=== PATIENT | male | born 1970 | race Caucasian/White ===

== ENCOUNTER 2021-11-23 21:06 | Emergency (ER) | payer OTHER ==
[~2021-11-23] VITALS: Ht 175.2 cm; Wt 62.6 kg
[~2021-11-23 21:06] MED LIST: 'CLONIDINE0.1 MG PO; SUBOXONE 8 MG-1 EACH SL; VISTARIL25 M2 PO; ZOFRAN4 MG PO
[2021-11-23 21:40] LABS: MEAN CELL VOLUME 108.4 fl (80.0-94.0); MEAN CORPUSCULAR HGB CONC 34.2 g/dl (33.0-37.0); MEAN PLATELET VOLUME 9.8 fl (9.6-12.3); PLATELET COUNT AUTOMATED 71 10*3/uL (130-400); RED BLOOD COUNT 3.32 10*6/uL (4.50-5.90); RED CELL DISTRI WIDTH 14.8 % (0-14.5); WHITE BLOOD COUNT 4.8 10*3/uL (4.8-10.8)
[2021-11-23 21:41] LABS: MANUAL DIFF REFLEX YES
[2021-11-23 21:49] LABS: ALKALINE PHOSPHATASE 62 U/L (45-117); BUN 10 mg/dl (7-24); CHLORIDE 112 mmol/L (98-107); CREATININE 0.66 mg/dL (0.70-1.30); POTASSIUM 3.8 mmol/L (3.5-5.1); SGOT/AST 72 IU/L (3-35); SGPT/ALT 38 U/L (12-78); SODIUM 142 mmol/L (136-145); TOTAL PROTEIN 7.4 gm/dL (6.4-8.2)
[2021-11-23 21:50] LABS: CPK 219 U/L (39-308)
[2021-11-23 22:03] LABS: BURR CELLS FEW; PLATELET SUFFICIENCY LOW (NORMAL); TOTAL CELLS COUNTED 100 #CELLS
[2021-11-23 22:28] LABS: BACTERIA 1+; BILIRUBIN 2+ (Negative); BLOOD Negative (Negative); CALCIUM OXALATE CRYSTALS 1+; CLARITY Clear (Clear); COLOR Orange (Yellow); GLUCOSE Negative (Negative); KETONE Trace (Negative); LEUKO ESTERASE Trace (Negative); MUCOUS 2+; NITRITE Positive (Negative); SPECIFIC GRAVITY >= 1.030 (1.001-1.030)
== END 2021-11-23 23:22 | disposition home or self-care (01) ==
LOC: ED 21:06
PROVIDERS: Internal Medicine
DX: D64.9 Anemia, unspecified (principal); F10.929 Alcohol use, unspecified with intoxication, unspecified; Y90.9 Presence of alcohol in blood, level not specified; E44.0 Moderate protein-calorie malnutrition; R79.89 Other specified abnormal findings of blood chemistry

== ENCOUNTER 2021-12-25 18:34 | Emergency (ER) | payer OTHER ==
[~2021-12-25] VITALS: Ht 175.2 cm; Wt 71.2 kg
[2021-12-25 19:21] LABS: BASO % 0.4 % (0.0-1.0); EOS % 0.9 % (1.0-4.0); HEMATOCRIT 33.8 % (42.0-52.0); LYMPH # 1.3 10*3/uL (1.3-4.4); LYMPH % 29.2 % (27.0-41.0); MEAN CELL VOLUME 104.6 fl (80.0-94.0); MEAN CORPUSCULAR HGB 36.5 pg (27.0-31.0); MEAN CORPUSCULAR HGB CONC 34.9 g/dl (33.0-37.0); MEAN PLATELET VOLUME 9.2 fl (9.6-12.3); MONO # 0.4 10*3/uL (0.1-1.0); MONO % 9.8 % (3.0-9.0); NEUT # 2.7 10*3/uL (2.3-7.9); NEUT % 59.5 % (47.0-73.0); PLATELET COUNT AUTOMATED 72 10*3/uL (130-400); RED BLOOD COUNT 3.23 10*6/uL (4.50-5.90); RED CELL DISTRI WIDTH 14.4 % (0-14.5); WHITE BLOOD COUNT 4.5 10*3/uL (4.8-10.8)
[2021-12-25 19:41] LABS: INTERNATIONAL NORM RATIO 1.4 (2.0-3.5)
[2021-12-25 19:42] LABS: ALKALINE PHOSPHATASE 79 U/L (45-117); BUN 4 mg/dl (7-24); CHLORIDE 117 mmol/L (98-107); CREATININE 0.59 mg/dL (0.70-1.30); LIPASE 215 U/L (73-393); POTASSIUM 2.9 mmol/L (3.5-5.1); SGOT/AST 77 IU/L (3-35); SGPT/ALT 37 U/L (12-78); SODIUM 147 mmol/L (136-145); TOTAL PROTEIN 6.9 gm/dL (6.4-8.2)
[2021-12-25] MEDS ORDERED: K-TAB20 MEQ PO (21:28)
== END 2021-12-25 21:33 ==
LOC: ED 18:34
PROVIDERS: Physician Assistant
DX: G89.29 Other chronic pain (principal); R10.9 Unspecified abdominal pain; F17.200 Nicotine dependence, unspecified, uncomplicated

== ENCOUNTER 2022-09-15 17:43 | Emergency (ER) | payer OTHER ==
[~2022-09-15] VITALS: Ht 170.1 cm; Wt 86.2 kg
[~2022-09-15 17:43] MED LIST changes: +K-TAB20 MEQ PO
[2022-09-15 18:27] LABS: MEAN CORPUSCULAR HGB 26.4 pg (27.0-31.0); MEAN CORPUSCULAR HGB CONC 27.2 g/dl (33.0-37.0); MEAN PLATELET VOLUME 9.3 fl (9.6-12.3); PLATELET COUNT AUTOMATED 188 10*3/uL (130-400); RED BLOOD COUNT 1.97 10*6/uL (4.50-5.90); RED CELL DISTRI WIDTH 19.2 % (0-14.5); WHITE BLOOD COUNT 8.2 10*3/uL (4.8-10.8)
[2022-09-15 18:33] LABS: HEMATOCRIT 19.1 % (42.0-52.0); MANUAL DIFF REFLEX YES
[2022-09-15 18:42] LABS: ALKALINE PHOSPHATASE 32 U/L (46-116); BUN 18 mg/dl (9-23); CHLORIDE 107 mmol/L (98-107); LIPASE 35 U/L (12-53); POTASSIUM 3.3 mmol/L (3.4-5.1); SGPT/ALT 13 U/L (10-49); TOTAL PROTEIN 5.8 gm/dL (6.0-8.0)
[2022-09-15 18:45] VITALS: BP 106/79
[2022-09-15 18:45] LABS: ACT PARTIAL THROMBO TIME 26.2 SECONDS (20.0-32.1); INTERNATIONAL NORM RATIO 1.6 (2.0-3.5)
[2022-09-15 19:07] VITALS: BP 124/82
[2022-09-15 19:08] LABS: BURR CELLS FEW; PLATELET SUFFICIENCY NORMAL (NORMAL); POLYCHROMASIA SLIGHT; TOTAL CELLS COUNTED 100 #CELLS
== END 2022-09-15 20:11 | disposition short-term general hospital (02) ==
LOC: ED 17:43
PROVIDERS: Nurse Practitioner Family
DX: K92.2 Gastrointestinal hemorrhage, unspecified (principal); K70.30 Alcoholic cirrhosis of liver without ascites; E87.6 Hypokalemia; E87.20 Acidosis, unspecified

== ENCOUNTER 2022-10-28 09:24 | Emergency (ER) | payer OTHER ==
[~2022-10-28] VITALS: Ht 175.2 cm; Wt 61.2 kg
[2022-10-28 09:30] VITALS: BP 141/88
[2022-10-28 10:00] LABS: BASO % 0.3 % (0.0-1.0); EOS % 0.5 % (1.0-4.0); HEMATOCRIT 34.9 % (42.0-52.0); LYMPH # 0.7 10*3/uL (1.3-4.4); LYMPH % 11.7 % (27.0-41.0); MEAN CELL VOLUME 93.3 fl (80.0-94.0); MEAN CORPUSCULAR HGB 31.3 pg (27.0-31.0); MEAN CORPUSCULAR HGB CONC 33.5 g/dl (33.0-37.0); MEAN PLATELET VOLUME 8.2 fl (9.6-12.3); MONO # 0.2 10*3/uL (0.1-1.0); MONO % 4.1 % (3.0-9.0); NEUT # 4.8 10*3/uL (2.3-7.9); NEUT % 83.1 % (47.0-73.0); PLATELET COUNT AUTOMATED 201 10*3/uL (130-400); RED BLOOD COUNT 3.74 10*6/uL (4.50-5.90); RED CELL DISTRI WIDTH 18.9 % (0-14.5); WHITE BLOOD COUNT 5.8 10*3/uL (4.8-10.8)
[2022-10-28 10:11] LABS: ACT PARTIAL THROMBO TIME 27.2 SECONDS (20.0-32.1); INTERNATIONAL NORM RATIO 1.3 (2.0-3.5)
[2022-10-28 10:24] LABS: ALKALINE PHOSPHATASE 51 U/L (46-116); BUN 11 mg/dl (9-23); CHLORIDE 106 mmol/L (98-107); LIPASE 32 U/L (12-53); POTASSIUM 3.1 mmol/L (3.4-5.1); SGPT/ALT 25 U/L (10-49); TOTAL PROTEIN 7.7 gm/dL (6.0-8.0)
[2022-10-28 11:02] VITALS: BP 122/88
[2022-10-28] MEDS ORDERED: OMEPRAZOLE10 MG PO (12:24)
[2022-10-28] MEDS ORDERED: ALDACTONE25 MG PO (12:24)
[2022-10-28] MEDS ORDERED: CARVEDILOL3.125 MG PO (12:25)
[2022-10-28] MEDS ORDERED: FUROSEMIDE20 M1 PO (12:26)
[2022-10-28] MEDS ORDERED: SENNA8.6 MG PO (12:26)
[2022-10-28] MEDS ORDERED: MIRALAX119 GM PO (12:30)
[2022-10-28 16:37] VITALS: BP 133/90
[2022-10-28 17:58] LABS: BASO % 0.2 % (0.0-1.0); EOS % 0.7 % (1.0-4.0); HEMATOCRIT 32.8 % (42.0-52.0); LYMPH # 0.8 10*3/uL (1.3-4.4); LYMPH % 12.3 % (27.0-41.0); MEAN CELL VOLUME 95.1 fl (80.0-94.0); MEAN CORPUSCULAR HGB CONC 32.6 g/dl (33.0-37.0); MEAN PLATELET VOLUME 8.4 fl (9.6-12.3); MONO # 0.4 10*3/uL (0.1-1.0); MONO % 6.4 % (3.0-9.0); NEUT # 4.9 10*3/uL (2.3-7.9); NEUT % 80.1 % (47.0-73.0); PLATELET COUNT AUTOMATED 160 10*3/uL (130-400); RED BLOOD COUNT 3.45 10*6/uL (4.50-5.90); RED CELL DISTRI WIDTH 19.2 % (0-14.5); WHITE BLOOD COUNT 6.1 10*3/uL (4.8-10.8)
[2022-10-28 19:10] VITALS: BP 127/76
== END 2022-10-28 20:56 | disposition short-term general hospital (02) ==
LOC: ED 09:24 → EDHOLD 11:50 → ED 11:50 → EDHOLD 12:13 → ED 20:56
PROVIDERS: Emergency Medicine
DX: K92.2 Gastrointestinal hemorrhage, unspecified (principal); K74.60 Unspecified cirrhosis of liver; Z79.899 Other long term (current) drug therapy

== ENCOUNTER → 2024-04-25 | Outpatient (CLI) | payer MEDICAID ==
[~2024-04-25] MED LIST changes: +ALDACTONE25 MG PO; +CARVEDILOL3.125 MG PO; +FUROSEMIDE20 M1 PO; +MIRALAX119 GM PO; +OMEPRAZOLE10 MG PO; +SENNA8.6 MG PO
[2024-04-25 10:31] LABS: BASO % 0.7 % (0.0-1.0); EOS # 0.3 10*3/uL (0.0-0.4); EOS % 4.7 % (1.0-4.0); HEMATOCRIT 38.5 % (42.0-52.0); MEAN CELL VOLUME 98.2 fl (80.0-94.0); MEAN CORPUSCULAR HGB 32.1 pg (27.0-31.0); MEAN CORPUSCULAR HGB CONC 32.7 g/dl (33.0-37.0); MEAN PLATELET VOLUME 9.1 fl (9.6-12.3); MONO # 0.6 10*3/uL (0.1-1.0); MONO % 10.3 % (3.0-9.0); NEUT % 52.9 % (47.0-73.0); PLATELET COUNT AUTOMATED 162 10*3/uL (130-400); RED BLOOD COUNT 3.92 10*6/uL (4.50-5.90); RED CELL DISTRI WIDTH 14.8 % (0-14.5); WHITE BLOOD COUNT 5.8 10*3/uL (4.8-10.8)
[2024-04-25 10:57] LABS: ALKALINE PHOSPHATASE 83 U/L (46-116); BUN 13 mg/dl (9-23); CHLORIDE 109 mmol/L (98-107); CHOLESTEROL 141 mg/dL (<200); GAMMA GLUTAMYL TRANSPEPTIDASE 49 U/L (0-73); LDL CHOLESTEROL 83 mg/dL (9-159); POTASSIUM 3.7 mmol/L (3.4-5.1); SGPT/ALT 39 U/L (5-49); TOTAL PROTEIN 7.6 gm/dL (6.0-8.0); TRIGLYCERIDES 54 mg/dl (<150)
== END | disposition home or self-care (01) ==
LOC: LAB 10:10
PROVIDERS: ATTEND Nurse Practitioner Primary Care
DX: D69.6 Thrombocytopenia, unspecified (principal); B18.2 Chronic viral hepatitis C; R73.03 Prediabetes

== ENCOUNTER → 2024-05-03 | Outpatient (CLI) | payer MEDICAID ==
[~2024-05-03] MED LIST changes: +IOHEXOL 300 MG/ML 100 ML VIAL IV ONE; +SODIUM CHLORIDE 0.9% 10 ML SYR IV SCH
== END | disposition home or self-care (01) ==
LOC: CT 00:22
PROVIDERS: ATTEND Nurse Practitioner Primary Care
DX: N13.2 Hydronephrosis with renal and ureteral calculous obstruction (principal); K80.20 Calculus of gallbladder without cholecystitis without obstruction; K57.30 Diverticulosis of large intestine without perforation or abscess without bleeding; Q63.1 Lobulated, fused and horseshoe kidney; R18.8 Other ascites; R10.84 Generalized abdominal pain; M54.9 Dorsalgia, unspecified

== ENCOUNTER 2024-10-09 07:11 | Emergency (ER) | payer MEDICAID ==
[~2024-10-09] VITALS: Ht 175.2 cm; Wt 83.9 kg
[~2024-10-09 07:11] MED LIST changes: -IOHEXOL 300 MG/ML 100 ML VIAL IV ONE; -SODIUM CHLORIDE 0.9% 10 ML SYR IV SCH
[2024-10-09] MEDS ORDERED: AMLODIPINE BESY10 MG PO (07:19)
[2024-10-09] MEDS ORDERED: FAMOTIDINE40 MG PO (07:19)
[2024-10-09] MEDS ORDERED: TAMSULOSIN HCL0.4 MG PO (07:20)
[2024-10-09] MEDS ORDERED: KENALOG 0.1%80 GM T (07:20)
[2024-10-09 08:10] LABS: BASO # 0.1 10*3/uL (0.0-0.1); BASO % 0.8 % (0.0-1.0); EOS # 0.1 10*3/uL (0.0-0.4); MEAN CELL VOLUME 99.8 fl (80.0-94.0); MEAN CORPUSCULAR HGB 33.8 pg (27.0-31.0); MEAN CORPUSCULAR HGB CONC 33.9 g/dl (33.0-37.0); MEAN PLATELET VOLUME 9.7 fl (9.6-12.3); MONO % 13.3 % (3.0-9.0); NEUT # 4.7 10*3/uL (2.3-7.9); NEUT % 65.3 % (47.0-73.0); PLATELET COUNT AUTOMATED 162 10*3/uL (130-400); RED BLOOD COUNT 4.61 10*6/uL (4.50-5.90); RED CELL DISTRI WIDTH 17.4 % (0-14.5); WHITE BLOOD COUNT 7.1 10*3/uL (4.8-10.8)
[2024-10-09 08:29] LABS: BUN 8 mg/dl (9-23); CHLORIDE 100 mmol/L (98-107)
[2024-10-09] MEDS ORDERED: POTASSIUM CHLORIDE 20 MEQ TAB PO ONE (08:40)
[2024-10-09] MEDS ORDERED: SODIUM CHLORIDE 0.9% 1,000 ML IV ONE (09:05)
[2024-10-09] MEDS ORDERED: Ondansetron4 MG PO (09:25)
== END 2024-10-09 09:55 | disposition home or self-care (01) ==
LOC: ED 07:11
PROVIDERS: Internal Medicine
DX: B34.9 Viral infection, unspecified (principal); R11.2 Nausea with vomiting, unspecified; Z79.899 Other long term (current) drug therapy